=== PATIENT | female | born 1935 | race Caucasian/White ===

== ENCOUNTER 2016-06-15 21:05 | Observation (INO) | payer MEDICARE ==
[~2016-06-15] VITALS: Ht 170.2 cm; Wt 68.4 kg
[2016-06-15 21:10] VITALS: BP 151/88; PULSE 75; RESP 18; TEMP 98.7; O2SAT 99
[2016-06-15 21:40] VITALS: BP 165/80; PULSE 70; RESP 18; O2SAT 97
[2016-06-15] MEDS ORDERED: SODIUM CHLORIDE 0.9% FLUSH 5 ML FLUSH IVF PRN (21:45)
[2016-06-15 21:53] LABS: BASOPHIL % 0.4 % (0.0-2.0); EOSINOPHIL # 0.1 TH/MM3 (0-0.4); EOSINOPHIL % 1.3 % (0.0-4.0); HEMATOCRIT 41.1 % (35.0-46.0); HEMO FLAGS DIFF FINAL; LYMPH % 33.3 % (9.0-44.0); LYMPHOCYTE # 1.7 TH/MM3 (1.0-4.8); MEAN CELL VOLUME 86.5 FL (80.0-100.0); MEAN CORPUSCULAR HEMOGLOBIN 28.4 PG (27.0-34.0); MEAN CORPUSCULAR HGB CONC 32.8 % (32.0-36.0); MONO % 7.6 % (0.0-8.0); NEUT % 57.4 % (16.0-70.0); PLATELET COUNT 171 TH/MM3 (150-450); RED BLOOD COUNT 4.75 MIL/MM3 (4.00-5.30); RED CELL DISTRIBUTION WIDTH 13.1 % (11.6-17.2); WHITE BLOOD COUNT 5.2 TH/MM3 (4.0-11.0)
[2016-06-15] MEDS ORDERED: COUM5TAB PO (21:57)
[2016-06-15] MEDS ORDERED: LEVO50TA4 PO (21:58)
[2016-06-15] MEDS ORDERED: AMOX500C PO (21:59)
[2016-06-15 22:02] LABS: CHLORIDE 108 MEQ/L (98-107); POTASSIUM 3.6 MEQ/L (3.5-5.1); SODIUM (NA) 143 MEQ/L (136-145)
--- NOTE | 2016-06-15 22:03 | PD ---
HPI Chief Complaint: Dizziness Time Seen by Provider: 21:27 Travel History International Travel<30 days: No Contact w/Intl Traveler<30days: No Traveled to known affect area: No History of Present Illness HPI 80yo F with PMH of afib on coumadin presents to the ED with c/o dizziness today. States she was walking and felt like she was about to pass out but didnt. State it was worst when she walks fast. Denies any fever, chest pain, sob, n/v, abdominal pain, focal numbness or weakness. Pt states this dizziness lasted from 2pm to 5pm. States it returns when she walks fast. Does not feel the room spinning. PFSH Past Medical History Hx Anticoagulant Therapy: Yes (Coumadin) Arthritis: Yes Cardiovascular Problems: Yes (A-fib ) Diminished Hearing: Yes (COUNCIL) Thyroid Disease: Yes (Hypothyroid) Tetanus Vaccination: > 5 Years Influenza Vaccination: No : 6 Para: 6 Tubal Ligation: Yes Past Surgical History Abdominal Surgery: Yes (Hernia Repair) Social History Alcohol Use: No Tobacco Use: No (Quit "20 years ago.") Substance Use: No Allergies-Medications (Allergen,Severity, Reaction): Uncoded Allergies: Certain pain meds (Allergy, Intermediate, UPSET STOMACH, 06/15/16) SOME PAIN MEDS (Adverse Reaction, Intermediate, GI DISTRESS, 03/23/06) Reported Meds & Prescriptions Reported Meds & Active Scripts Active Reported Amoxicillin 500 Mg Cap 500 Mg PO DAILY Levothyroxine (Levothyroxine Sodium) 50 Mcg Tab 50 Mcg PO DAILY Coumadin (Warfarin) 5 Mg Tab 5 Mg PO DAILY Review of Systems Except as stated in HPI: all other systems reviewed are Neg Physical Exam Narrative GENERAL: 80yo F not in distress. SKIN: Warm and dry. HEAD: Atraumatic. Normocephalic. EYES: Pupils equal and round. No scleral icterus. No injection or drainage. ENT: No nasal bleeding or discharge. Mucous membranes pink and moist. NECK: Trachea midline. No JVD. CARDIOVASCULAR: Regular rate and rhythm. No murmur appreciated. RESPIRATORY: No accessory muscle use. Clear to auscultation. Breath sounds equal bilaterally. GASTROINTESTINAL: Abdomen soft, non-tender, nondistended. No rebound tenderness or guarding. MUSCULOSKELETAL: No obvious deformities. No clubbing. No cyanosis. Trace lower ext edema. NEUROLOGICAL: Awake and alert. No obvious cranial nerve deficits. Motor grossly within normal limits. Normal speech. PSYCHIATRIC: Appropriate mood and affect; insight and judgment normal. Data Data Last Documented VS Vital Signs Date Time Temp Pulse Resp B/P Pulse Ox O2 Delivery O2 Flow Rate FiO2 06/15/16 23:01 70 16 165/95 98 Room Air 06/15/16 21:10 98.7 Orders Electrocardiogram (06/15/16 21:38) Basic Metabolic Panel (Bmp) (06/15/16 21:38) Complete Blood Count With Diff (06/15/16 21:38) B-Type Natriuretic Peptide (06/15/16 21:38) Ckmb (Isoenzyme) Profile (06/15/16 21:38) Troponin I (06/15/16 21:38) Act Partial Throm Time (Ptt) (06/15/16 21:38) Prothrombin Time / Inr (Pt) (06/15/16 21:38) Urinalysis - C+S If Indicated (06/15/16 21:38) Ecg Monitoring (06/15/16 21:38) Iv Access Insert/Monitor (06/15/16 21:38) Oximetry (06/15/16 21:38) Sodium Chloride 0.9% Flush (Ns Flush) (06/15/16 21:45) Orthostatic Vital Signs (06/15/16 21:38) CKMB (06/15/16 21:40) CKMB% (06/15/16 21:40) Meclizine (Antivert) (06/15/16 22:30) Ct Brain W/O Iv Contrast(Rout) (06/15/16 ) Acetaminophen (Tylenol) (06/15/16 23:30) Admit Order (Ed Use Only) (06/15/16 23:40) Labs Laboratory Tests Test 06/15/16 06/15/16 21:40 22:40 White Blood Count 5.2 TH/MM3 Red Blood Count 4.75 MIL/MM3 Hemoglobin 13.5 GM/DL Hematocrit 41.1 % Mean Corpuscular Volume 86.5 FL Mean Corpuscular Hemoglobin 28.4 PG Mean Corpuscular Hemoglobin 32.8 % Concent Red Cell Distribution Width 13.1 % Platelet Count 171 TH/MM3 Mean Platelet Volume 10.0 FL Neutrophils (%) (Auto) 57.4 % Lymphocytes (%) (Auto) 33.3 % Monocytes (%) (Auto) 7.6 % Eosinophils (%) (Auto) 1.3 % Basophils (%) (Auto) 0.4 % Neutrophils # (Auto) 3.0 TH/MM3 Lymphocytes # (Auto) 1.7 TH/MM3 Monocytes # (Auto) 0.4 TH/MM3 Eosinophils # (Auto) 0.1 TH/MM3 Basophils # (Auto) 0.0 TH/MM3 CBC Comment DIFF FINAL Differential Comment Prothrombin Time 22.8 SEC Prothromb Time International 2.0 RATIO Ratio Activated Partial 36.4 SEC Thromboplast Time Sodium Level 143 MEQ/L Potassium Level 3.6 MEQ/L Chloride Level 108 MEQ/L Carbon Dioxide Level 26.0 MEQ/L Anion Gap 9 MEQ/L Blood Urea Nitrogen 11 MG/DL Creatinine 0.82 MG/DL Estimat Glomerular Filtration 67 ML/MIN Rate Random Glucose 99 MG/DL Calcium Level 8.3 MG/DL Total Creatine Kinase 141 U/L Creatine Kinase MB 4.5 NG/ML Troponin I LESS THAN 0.02 NG/ML B-Type Natriuretic Peptide 66 PG/ML Urine Color STRAW Urine Turbidity CLEAR Urine pH 6.5 Urine Specific Perry 1.007 Urine Protein NEG mg/dL Urine Glucose (UA) NEG mg/dL Urine Ketones NEG mg/dL Urine Occult Blood NEG Urine Nitrite NEG Urine Bilirubin NEG Urine Leukocyte Esterase NEG Urine RBC 0-2 /hpf Urine WBC 0-2 /hpf Urine Squamous Epithelial 0-5 /hpf Cells Urine Bacteria NONE /hpf Microscopic Urinalysis Comment CULT NOT INDICATED MDM Medical Decision Making Medical Screen Exam Complete: Yes Emergency Medical Condition: Yes Interpretation(s) EKG: Afib at 70bpm. Q wave and TWI III. QTc 415ms. Differential Diagnosis Arrhythmia vs. electrolyte abnormality vs. dehydration vs. UTI vs. posterior stroke Narrative Course 80yo F with c/o light headedness and near syncope since today. Pt felt that dizziness is worst with movement and worst with walking. She also describes head fullness but not headache. Although presentation does not sound like vertigo, she did felt like she was spinning so meclizine 25mg PO given. Pt has history of afib and EKG showed rate control afib. Labs reviewed, no leukocytosis. H/H stable at 13.5/41.1. Troponin negative. BUN and creatinine normal. BNP 66. INR therapeutic at 2.0. Orthostatic negative. Negative CT brain and UA. Will admit for observation on telemetry for near syncope and further work up of dizziness. Diagnosis Primary Impression: Near syncope Admitting Information Admitting Physician Requests: Observation Marge Miranda DO Jun 15, 2016 22:03
[2016-06-15 22:05] LABS: ANION GAP 9 MEQ/L (5-15)
[2016-06-15 22:06] LABS: BLOOD UREA NITROGEN 11 MG/DL (7-18)
[2016-06-15 22:08] LABS: GLOMERULAR FILTRATION RATE 67 ML/MIN (>89)
[2016-06-15 22:09] LABS: APTT (PATIENT) 36.4 SEC (24.3-30.1); PROTHROMBIN TIME - PATIENT 22.8 SEC (9.8-11.6)
[2016-06-15 22:10] VITALS: BP_SYST 147; BP_SYST 150; BP_SYST 168; BP_DIAS 102; BP_DIAS 79; BP_DIAS 90; RESP 16
[2016-06-15 22:11] LABS: CREATINE KINASE 141 U/L (26-192)
[2016-06-15 22:24] LABS: CKMB 4.5 NG/ML (0.5-3.6)
[2016-06-15] MEDS ORDERED: MECLIZINE HCL 25 MG TAB PO ONE (22:30)
[2016-06-15 22:45] LABS: BLOOD, URINE NEG (NEG); GLUCOSE,URINE NEG (NEG); KETONE, URINE NEG (NEG); NITRITE,URINE NEG (NEG); PH, URINE 6.5 (5.0-8.5)
[2016-06-15 22:50] LABS: URINE COLOR STRAW (YELLW/STRAW)
[2016-06-15 22:51] LABS: COMMENT (UR) CULT NOT INDICATED; CULTURE IF INDICATED CULT NOT INDICATED; RBC, URINE 0-2 /hpf (0-3); SQUAMOUS EPITHELIAL CELL URINE 0-5 /hpf (0-5); WBC, URINE 0-2 /hpf (0-5)
--- NOTE | 2016-06-15 22:56 | RADHPO ---
EXAM DATE/TIME: 06/15/2016 22:34 [facility] COMPARISON: No previous studies available for comparison. INDICATIONS : Dizziness. Cephalgia. RADIATION DOSE: 55.93 CTDIvol (mGy) MEDICAL HISTORY : Cardiovascular disease. SURGICAL HISTORY : None. ENCOUNTER: Initial ACUITY: 1 day PAIN SCALE: 4/10 LOCATION: cranial TECHNIQUE: Multiple contiguous axial images were obtained of the head. Using automated exposure control and adj ustment of the mA and/or kV according to patient size, radiation dose was kept as low as reasonably a chievable to obtain optimal diagnostic quality images. FINDINGS: CEREBRUM: The ventricles are normal for age. No evidence of midline shift, mass lesion, hemorrhage or acute in farction. No extra-axial fluid collections are seen. POSTERIOR FOSSA: The cerebellum and brainstem are intact. The 4th ventricle is midline. The cerebellopontine angle i s unremarkable. EXTRACRANIAL: The visualized portion of the orbits is intact. SKULL: The calvaria is intact. No evidence of skull fracture. CONCLUSION: Negative noncontrast head CT. Mehdi Smith MD on June 15, 2016 at 22:54 Board Certified Radiologist. This report was verified electronically.
[2016-06-15 23:01] VITALS: BP 165/95; PULSE 70; RESP 16; O2SAT 98
[2016-06-15] MEDS ORDERED: ACETAMINOPHEN 500 MG CPLT PO ONE (23:30)
[2016-06-15] MEDS ORDERED: SODIUM CHLORIDE 0.9% FLUSH 5 ML FLUSH IV PRN (23:45)
[2016-06-16] VITALS (14 sets, daily range): BP systolic 118–150; BP diastolic 61–92; PULSE 67–95; RESP 16–22; TEMP 96.8–98.6; O2SAT 97–98
[2016-06-16 05:56] LABS: AUTOMATED NEUTROPHIL # 2.3 TH/MM3 (1.8-7.7); BASOPHIL % 0.6 % (0.0-2.0); EOSINOPHIL # 0.1 TH/MM3 (0-0.4); HEMATOCRIT 38.3 % (35.0-46.0); HEMO FLAGS DIFF FINAL; LYMPH % 33.8 % (9.0-44.0); LYMPHOCYTE # 1.5 TH/MM3 (1.0-4.8); MEAN CELL VOLUME 87.1 FL (80.0-100.0); MEAN CORPUSCULAR HEMOGLOBIN 28.2 PG (27.0-34.0); MEAN CORPUSCULAR HGB CONC 32.4 % (32.0-36.0); MONO % 11.4 % (0.0-8.0); NEUT % 52.2 % (16.0-70.0); PLATELET COUNT 151 TH/MM3 (150-450); WHITE BLOOD COUNT 4.4 TH/MM3 (4.0-11.0)
[2016-06-16 06:10] LABS: POTASSIUM 3.9 MEQ/L (3.5-5.1)
[2016-06-16] MEDS: SODIUM CHLORIDE 0.9% FLUSH 5 ML FLUSH IV SCH ×2 (09:00→21:11)
--- NOTE | 2016-06-16 09:35 | RADHPO ---
EXAM DATE/TIME: 06/16/2016 12:38 [facility] COMPARISON: No previous studies available for comparison. INDICATIONS : Syncope. MEDICAL HISTORY : Hypothyroidism. Arthritis. A-Fib. SURGICAL HISTORY : Tubal ligation. Hernia repair. ENCOUNTER: Initial ACUITY: 1 day PAIN SCORE: 10 LOCATION: Bilateral neck PEAK SYSTOLIC VELOCITIES (cm/sec): ICA/CCA RATIO: Right: 1.2 Left: 1.1 ICA: Right: 134 Left: 105 CCA: Right: 107 Left: 93 ECA: Right: 99 Left: 97 VERTEBRAL: Right: 65 antegrade Left: 61 antegrade Elevated flow velocities and ICA/CCA ratios have been found to correlate with increased degrees of vessel stenosis, calculated as percentage of diameter relative to a normal segment of distal ICA/CCA FINDINGS: RIGHT CAROTID: No significant stenosis is visualized. The waveforms are within normal limits. LEFT CAROTID: No significant stenosis is visualized. The waveforms are within normal limits. VERTEBRAL ARTERIES: Antegrade flow is seen in both vertebral arteries. MISCELLANEOUS: None. CONCLUSION: No evidence of hemodynamically significant carotid stenosis. Durga Rudolph MD on June 16, 2016 at 9:32 Board Certified Radiologist. This report was verified electronically.
[2016-06-16 10:42] LABS: INTERNATIONAL NORMALIZED RATIO 1.9 RATIO; PROTHROMBIN TIME - PATIENT 22.1 SEC (9.8-11.6)
[2016-06-16 10:49] LABS: CREATINE KINASE 102 U/L (26-192)
[2016-06-16] MEDS: LEVOTHYROXINE SODIUM 50 MCG TAB PO SCH (11:26)
--- NOTE | 2016-06-16 11:33 | MH ---
cc: JADON COTTER DATE OF ADMISSION: 06/15/2016 ADMISSION DIAGNOSIS Presyncope. HISTORY OF PRESENT ILLNESS Ms. Wilkinson is a very pleasant 80-year-old female patient of Dr. Pavon who presented to the emergency room yesterday after having a sudden onset of an episode of vertigo. According to the patient she has been in good health recently. She was doing her laundry yesterday when she turned around and as she was walking back from the laundry room she suddenly experienced an episode where she felt like the room was spinning. She felt like she was drunk. She was very unsteady, had a hard time walking in a straight line. She said this happened, this lasted approximately from 2 o'clock to 5 in the afternoon. At one point she said she bent over to tile picker something, she sat down in a chair to ease her symptoms and when she bent down over to tile picker a magazine she felt like she was going to pass out. She relates some head pressure with this occurrence. When she spoke to her family and sister they urged her strongly to come to the emergency room to get this evaluated. She does not describe an actual headache. She just describes a pressure or fullness in the head that occurred with this episode that persists a little bit. She says the dizziness is currently gone. She has not been ill recently with any kind of upper respiratory tract infection or allergies. She does say that she does doctor with an ENT for decreased hearing in her left ear but that has improved lately with the medication that she has been taking from him. She is unable to give me the name of the medication. She does have a history of atrial fibrillation and is on Coumadin. She does not take any other medicines for the atrial fibrillation except for the Coumadin. She denies any chest pain or any palpitations or increased and irregular heartbeat when this occurred. She was not short of breath. She did have any numbness or tingling. She denies having any weakness when this occurred. Aside from the room spinning she denies any kind of visual changes. PAST MEDICAL HISTORY Past medical history is significant for: 1. Hypothyroidism. 2. 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 3. Atrial fibrillation. 4. She does have some arthritis. PAST SURGICAL HISTORY Surgical history includes: 1. Hernia repair. 2. Tubal ligation. 3. She does mention a cyst on her ovaries. ALLERGIES She is allergic to SOME PAIN MEDS BUT SHE IS UNABLE TO SPECIFY. MEDICATION 1. She is on levothyroxine 50 mcg daily. 2. Coumadin 5 mg daily. 3. A medication from the ENT which she is unable to give me the name of. HABITS She does not currently consume alcohol. She said she stopped smoking approximately 20 years ago. SOCIAL HISTORY She is . She lives with her son locally. She has a daughter local as well. 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 REVIEW OF SYSTEMS See HPI. She denies any weight loss. She states that she has gained some weight. She denies any nasal congestion or cough. No fever or chills. As stated no shortness of breath or chest pain or palpitations. She denies any abdominal pain or change in bowel movements. No heartburn. She is urinating well. No swelling in her extremities. She does tell me that she did have to see Dr. Pavon last week for what she understands was a burst blood vessel in her left eye, at that time her INR was checked and she was told that it was right where it needed to be. FAMILY HISTORY Noncontributory. PHYSICAL EXAMINATION VITAL SIGNS: Temperature is 97.6, pulse of 76, respirations 18, blood pressure is 136/61, pulse ox is 98% on room air. GENERAL: This is a very pleasant female lying in the hospital bed. She does not appear to be in any acute distress at this point, she speaks in full sentences. HEENT: She is normocephalic and atraumatic. EOM is intact. She has a clear oral mucosa. She has got dentures in place. Both ear canals are clear. There is no inflammation of the tympanic membrane. There is no cerumen. NECK: Her neck is supple. I hear no bruits. LUNGS: Her lungs are clear to auscultation. No rhonchi, rales or wheezes. HEART: Her heart is irregular but I hear no murmurs. ABDOMEN: Abdomen has good bowel sounds in all four quadrants. No rebound or guarding. EXTREMITIES: Shows no clubbing, cyanosis or edema. She moves all extremities well. She has minimal nystagmus to the left when I did try to get her to do the exam, she did feel that she felt a slight bit of the dizziness but very slight. She has good [id number], [id number]. LABORATORY DATA Lab work that she was done when she came in showed a white count of 5.2, hemoglobin of 13.5, hematocrit of 41.1, platelet count of 171, INR was 2. Sodium was 143, potassium was 3.6, BUN was 11, creatinine was 0.82, random glucose was 99. CK was 141 with an MB of 4.5. Troponin was less than 0.2. BNP was 66. Her UA was clear. IMAGING STUDIES CT scan of the brain that was done was negative noncontrast. EKG EKG was atrial fibrillation with a rate of 70. ASSESSMENT/PLAN A 80-year-old female with a history of atrial fibrillation with acute onset of vertigo and questionable syncope. She has been admitted at this point overnight for observation. Given her history of atrial fibrillation and acute presentation and resolution of her symptoms, at this point will monitor her with telemetry, get an echo and a carotid ultrasound. I am actually going to get an MRI of the brain as well today. Currently this morning she is feeling better except a little bit of the head fullness or pressure, which apparently has improved. See how she does with physical therapy, continue her anticoagulation. Further recommendations as the case develops. MD HEMALATHA Quiñones/PANCHOL /10:53 AM /11:09 AM
[2016-06-16] MEDS ORDERED: GADODIAMIDE PF 287 MG/ML 5 ML VIAL (for RAD MRI) IV ONE (13:04)
--- NOTE | 2016-06-16 13:51 | EKG ---
Date Performed: 06/15/2016 Time Performed: 21:49:02 PTAGE: 80 years EKG: Atrial fibrillation Inferior T wave changes are nonspecific Abnormal ECG PREVIOUS TRACING : 03/21/2006 08.13 Since previous tracing, no significant change noted DOCTOR: Felecia Joya Interpretating Date/Time 06/16/2016 13:44:21
--- NOTE | 2016-06-16 15:23 | RADHPO ---
EXAM DATE/TIME: 06/16/2016 13:00 [facility] COMPARISON: No previous studies available for comparison. INDICATIONS: Syncope. CONTRAST: 14 cc Omniscan (gadodiamide) IV MEDICAL HISTORY: None. SURGICAL HISTORY: Hernia, cataracts ENCOUNTER: Subsequent ACUITY: 1 day PAIN SCORE: 0/10 LOCATION: Cranial TECHNIQUE: Multiplanar, multisequence MRI of the brain was performed both prior to and following the administrat ion of paramagnetic contrast. FINDINGS: There is no restricted diffusion evident. Scattered periventricular white matter changes are noted, some of these are suspicious for a demyelinating process. There is no parenchymal hemorrhage, acute infarction or mass effect. There is no abnormal contrast enhancement appreciated. CONCLUSION: 1. Abnormal MRI of the brain with marked periventricular white matter changes. 2. Demyelinating process would be remote consideration. Herman Staton MD FACR on June 16, 2016 at 13:24 Board Certified Radiologist. This report was verified electronically.
[2016-06-16] MEDS ORDERED: WARFARIN SOD 5 MG TAB PO SCH (16:00)
[2016-06-16] MEDS: ACETAMINOPHEN 325 MG TAB PO PRN (16:47)
[2016-06-16] MEDS: WARFARIN SOD 6 MG TAB PO SCH (16:47)
--- NOTE | 2016-06-16 19:03 | EC ---
Study Study Date:06/16/2016 STUDY CONCLUSIONS SUMMARY - Left ventricle: The cavity size was normal. Wall thickness was normal. Systolic function was normal. The estimated ejection fraction was in the range of 50% to 55%. Wall motion was normal; there were no regional wall motion abnormalities. - Aortic valve: Valve area: 0.8cm^2(VTI). Valve area: 0.73cm^2 (Vmax). - Mitral valve: Mild regurgitation. - Tricuspid valve: Mild regurgitation. - Pulmonary arteries: PA peak pressure: 35mm Hg (S). If LV function is below 40, please consider prescribing an ACEI or ARB or document rationale for non-use. PROCEDURE DATA STUDY STATUS: Elective. Procedure: Transthoracic echocardiography. Image quality was fair. Scanning was performed from the parasternal, apical, and subcostal acoustic windows. Study completion: The patient tolerated the procedure well. Transthoracic echocardiography. M-mode, complete 2D, complete spectral Doppler, and color Doppler. Patient status: Inpatient. CARDIAC ANATOMY LEFT VENTRICLE: The cavity size was normal. Wall thickness was normal. Systolic function was normal. The estimated ejection fraction was in the range of 50% to 55%. Wall motion was normal; there were no regional wall motion abnormalities. AORTIC VALVE: Trileaflet; normal thickness leaflets. Doppler: Transvalvular velocity was within the normal range. There was no stenosis. No regurgitation. Valve area: 0.8cm^2(VTI). Valve area: 0.73cm^2 (Vmax). Mean gradient: 6mm Hg (S). Peak gradient: 13mm Hg (S). AORTA: Aortic root: The aortic root was normal in size. MITRAL VALVE: Structurally normal valve. Doppler: Transvalvular velocity was within the normal range. There was no evidence for stenosis. Mild regurgitation. LEFT ATRIUM: The atrium was normal in size. RIGHT VENTRICLE: The cavity size was normal. Wall thickness was normal. PULMONIC VALVE: Doppler: Transvalvular velocity was within the normal range. There was no evidence for stenosis. No regurgitation. TRICUSPID VALVE: Structurally normal valve. Doppler: Transvalvular velocity was within the normal range. Mild regurgitation. PULMONARY ARTERY: The main pulmonary artery was normal-sized. Systolic pressure was within the normal range. RIGHT ATRIUM: The atrium was normal in size. PERICARDIUM: There was no pericardial effusion. SYSTEMIC VEINS: Inferior vena cava: The vessel was normal in size. BASIC MEASUREMENTS ADULT Normal Left ventricle LV internal dimension, ED, chordal level, *32.7 mm 43-52 PLAX LV internal dimension, ES, chordal level, 25.4 mm 23-38 PLAX Fractional shortening, chordal level, PLAX *22 % >29 LV posterior wall thickness, ED 9.96 mm IVS/LVPW ratio, ED 1.01 <1.3 Ventricular septum Septal thickness, ED 10.1 mm Aortic valve Leaflet separation *11 mm 15-26 Right ventricle RV internal dimension, ED, PLAX 28.7 mm 19-38 BASIC MEASUREMENTS ADULT Normal Aortic valve Leaflet separation *11 mm 15-26 Aorta Root diameter, ED 33 mm 20-37 Left atrium Anterior-posterior dimension, ES 36 mm 19-40 LA/aortic root ratio 1.09 DOPPLER MEASUREMENTS ADULT Normal Main pulmonary artery Pressure, S *35 mm Hg =30 Aortic valve Peak velocity, S 178 cm/s Mean velocity, S 117 cm/s VTI, S 38 cm Mean gradient, S 6 mm Hg Peak gradient, S 13 mm Hg Valve area, VTI 0.8 cm^2 Valve area, Vmax 0.73 cm^2 Tricuspid valve Regurgitant peak velocity 250 cm/s Peak RV-RA gradient, S 25 mm Hg Maximal regurgitant velocity 250 cm/s Systemic veins Estimated CVP 10 mm Hg Right ventricle RV pressure, S *35 mm Hg <30 LEGEND: Mean values are shown as u=mean value. Asterisk (*) newby values outside specified normal range. Prepared and signed by Luiza Graff [id number]
[2016-06-17] VITALS: BP 100/64; PULSE 76; RESP 16; TEMP 98.1; O2SAT 95
[2016-06-17 04:06] VITALS: BP 118/81; PULSE 83; RESP 12; TEMP 96.2; O2SAT 96
[2016-06-17] MEDS: ONDANSETRON HCL 4 MG/2 ML VIAL IV PRN ×2 (05:53→12:51)
[2016-06-17] MEDS: LEVOTHYROXINE SODIUM 50 MCG TAB PO SCH (05:53)
[2016-06-17 06:53] LABS: INTERNATIONAL NORMALIZED RATIO 1.8 RATIO
[2016-06-17] MEDS: ACETAMINOPHEN 325 MG TAB PO PRN (07:41)
[2016-06-17 08:00] VITALS: BP 125/73; PULSE 67; PULSE 72; RESP 20; TEMP 96.8; O2SAT 95
[2016-06-17] MEDS: SODIUM CHLORIDE 0.9% FLUSH 5 ML FLUSH IV SCH (09:00)
[2016-06-17 12:00] VITALS: BP 136/75; PULSE 88; RESP 18; TEMP 96.9; O2SAT 95
--- NOTE | 2016-06-17 12:12 | HHI.PR ---
Subjective Remarks dizziness improved. headache this am at base of skull, unable to tolerate breakfast, emesis walked to the bathroom w/o dizziness addendum: pt seen again at 6:33 , eating light dinner, no more nausea or emesis today Objective Vitals Vital Signs Date Time Temp Pulse Resp B/P Pulse Ox O2 Delivery O2 Flow Rate FiO2 06/17/16 08:41 20 06/17/16 08:00 67 06/17/16 08:00 96.8 72 20 125/73 95 06/17/16 04:06 96.2 83 12 118/81 96 06/17/16 00:00 98.1 76 16 100/64 95 06/16/16 20:06 98.6 80 18 129/75 97 140/83 132/92 06/16/16 20:00 67 06/16/16 16:40 96.8 74 20 140/87 98 06/16/16 14:00 88 06/16/16 13:38 76 06/16/16 12:00 97.8 88 22 150/86 97 06/16/16 12:00 95 06/16/16 06/16/16 06/17/16 15:00 23:00 07:00 Intake Total 240 ml Balance 240 ml Intake Oral 240 ml # Voids 3 1 0 Result Diagram: 06/16/16 0545 06/16/16 0545 Other Results Last Impressions Carotid Artery Ultrasound 06/16/16 0000 Signed Impressions: Service Date/Time: Thursday, June 16, 2016 12:38 - CONCLUSION: No evidence of hemodynamically significant carotid stenosis. Durga Rudolph MD Brain MRI 06/16/16 0000 Signed Impressions: Service Date/Time: Thursday, June 16, 2016 13:00 - CONCLUSION: 1. Abnormal MRI of the brain with marked periventricular white matter changes. 2. Demyelinating process would be remote consideration. Herman Staton MD FACR Head CT 06/15/16 0000 Signed Impressions: Service Date/Time: June 22:34 - CONCLUSION: Negative noncontrast head CT. Mehdi Smith MD Objective Remarks Lying in bed, nad skull tender occipital region bilaterally. chin to chest w/o discomfort lungs cta heart irreg +bowel sounds no c/c/e A/P Problem List: (1) Near syncope Status: Resolved Plan: after speaking to patient do not feel she had a near syncopal episode as i was told by ER doctor (2) Dizzinesses Status: Acute Plan: vertigo improved her mri showed no acute process ,atrophy and some demyelinization that can be further evaluated as an outpatient (3) Atrial fibrillation Status: Chronic Plan: rate controlled. coumadin increased as she was subtherapeutic next morning after admission (4) Nausea & vomiting Status: Acute Plan: episode of nausea and emesis this am, will give her zofran, small bolus of iv fluids, no real abdominal pain, progress diet Assessment and Plan vertigo resolved no further nausea, tolerating po discharge home today Lalitha Davis MD Jun 17, 2016 12:12
[2016-06-17] MEDS ORDERED: KETOROLAC TROMETHAMINE 30 MG/ML (IVP) VIAL IV PUSH ONE (12:15)
[2016-06-17] MEDS ORDERED: PANTOPRAZOLE SODIUM 40 MG VIAL IV PUSH ONE (12:15)
[2016-06-17 16:00] VITALS: BP 130/71; PULSE 91; RESP 18; TEMP 97.9; O2SAT 95
[2016-06-17] MEDS: WARFARIN SOD 6 MG TAB PO SCH (17:07)
[2016-06-17] MEDS ORDERED: ZOFR4TAB3 SL (18:38)
--- NOTE | 2016-06-22 00:03 | HM ---
Date Performed: 06/16/2016 Time Performed: 16:59:00 HOOKUP DATE: 06/16/16 04:59:00 PM Fri ANALYSIS START TIME: 06/16/2016 5:04:00 PM ANALYSIS END TIME: 06/17/2016 5:08:00 PM PATIENT AGE: 80 PATIENT HEIGHT PATIENT WEIGHT DRUG LIST PATIENT DIAGNOSIS TEST NARRATIVE: The patient's average heart rate was 85 BPM. Heart rates greater than 120 B PM were noted 2% of the time. Heart rates less than 50 BPM were noted < 1% of the time. 2 pauses exceeding 2.0 seconds were noted. The longest pause of 2.5 seconds occurred at 12:40:49 PM Sat. 3 ventricular ectopics, which represented < 1% of the total beat count, were noted. The highest quintin tricular ectopic frequency occurred from 08:00 AM to 09:00 AM Sat. During this time 2 VE(s) occurred . Ventricular ectopics were observed as 1 isolated beat(s) and as 1 couplet(s). No runs were noted. No supraventricular ectopics were noted. Multiple episodes of ST depression (defined as -1.0 mm or more) were noted in channel 1. The maximum depression of -2.7 mm occurred at 08:03:35 AM Sat . In channel 2, a single episode of ST depression (defined as -1.0 mm or more) occurred at 12:43:55 PM Sat with a maximum depression of -2.[address] mm[address] depression (defined as -1.0 mm or more) were noted in channel 3. The maximum depression of -2.4 mm occurred at 08:04:30 AM Sat. TEST INTERPRETATION: 1) Atrial fibrillation 2) Heart rate greater than 120bpm 2% of the time 3) 2 pauses noted, longest 2.5 seconds at 12:40pm 4) Rate PVC 5) ST depressions noted in all leads 6) No diary events Signed by : Óscar Vásquez
== END 2016-06-17 19:37 | disposition home or self-care (01) ==
LOC: PHED 21:05 → PHEDA 23:41 → PHICU 06-16 08:53 → PH3A 06-16 16:36
PROVIDERS: ADMIT Legal Medicine; ATTEND Legal Medicine
DX: R55 Syncope and collapse (principal); I48.91 Unspecified atrial fibrillation; E03.9 Hypothyroidism, unspecified; R11.2 Nausea with vomiting, unspecified; R94.31 Abnormal electrocardiogram [ECG] [EKG]; H91.90 Unspecified hearing loss, unspecified ear; Z79.01 Long term (current) use of anticoagulants; Z87.891 Personal history of nicotine dependence
CPT/HCPCS: 70450; 70553; 80048; 81001; 82550; 82552; 83880; 84484; 85025; 85610; 85730; 93005; 93225; 93226; 93306; 93880; 97162; 99285; A9579; C9113; G0378; G8987; G8988; J2405